=== PATIENT | male | born 1970 | race Caucasian/White ===

== ENCOUNTER 2022-05-04 12:56 | Outpatient (CLI) | payer BC ==
[~2022-05-04 12:56] MED LIST: Iopamidol 370 76% 100 ML VIAL ONE
== END 2022-05-04 12:57 | disposition home or self-care (01) ==
LOC: MADLAB 12:56
PROVIDERS: ATTEND Family Medicine
DX: R10.9 Unspecified abdominal pain (principal); N20.0 Calculus of kidney
CPT/HCPCS: 74177; Q9967

== ENCOUNTER 2023-05-09 17:11 | Outpatient (CLI) | payer BC | END 2023-05-09 17:12 | disposition home or self-care (01) | LOC: MADRAD 17:11 | PROVIDERS: ATTEND Family Medicine | DX: S20.212A Contusion of left front wall of thorax, initial encounter (principal) | CPT/HCPCS: 71046 ==